=== PATIENT | male | born 1995 | race African-American/Black ===

== ENCOUNTER 2016-06-18 13:57 | Inpatient (IN) | payer MEDICAID, OTHER ==
[~2016-06-18] VITALS: Ht 177.8 cm; Wt 75.8 kg
[2016-06-18] VITALS (8 sets, daily range): BP systolic 112–144; BP diastolic 66–89; PULSE 60–85; RESP 16–18; TEMP 98.2–98.6; O2SAT 97–100
[2016-06-18] MEDS ORDERED: SODIUM CHLOR 0.9% 1000 ML INJ 1,000 ML IV SCH (14:21)
[2016-06-18] MEDS ORDERED: SODIUM CHLORIDE 0.9% FLUSH 10 ML FLUSH IVF PRN (14:30)
[2016-06-18] MEDS ORDERED: DIPHTH/TETANUS/ACEL PERTUSSIS (BOOSTER) 0.5 ML VIAL/PFS IM ONE (14:30)
[2016-06-18] MEDS ORDERED: ONDANSETRON HCL 4 MG/2 ML VIAL IVP ONE (14:30)
[2016-06-18 14:54] LABS: AUTOMATED NEUTROPHIL # 7.7 TH/MM3 (1.8-7.7); BASOPHIL % 0.4 % (0.0-2.0); EOSINOPHIL # 0.3 TH/MM3 (0-0.4); EOSINOPHIL % 2.8 % (0.0-4.0); HEMATOCRIT 45.4 % (39.0-51.0); HEMO FLAGS DIFF FINAL; LYMPHOCYTE # 2.4 TH/MM3 (1.0-4.8); MEAN CELL VOLUME 84.4 FL (80.0-100.0); MEAN CORPUSCULAR HEMOGLOBIN 28.3 PG (27.0-34.0); MEAN CORPUSCULAR HGB CONC 33.5 % (32.0-36.0); MONO % 5.2 % (0.0-8.0); NEUT % 69.6 % (16.0-70.0); PLATELET COUNT 197 TH/MM3 (150-450); RED BLOOD COUNT 5.38 MIL/MM3 (4.50-5.90); RED CELL DISTRIBUTION WIDTH 13.4 % (11.6-17.2)
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
[2016-06-18 15:11] LABS: APTT (PATIENT) 21.8 SEC (24.3-30.1); PROTHROMBIN TIME - PATIENT 10.9 SEC (9.8-11.6)
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
[2016-06-18 15:20] LABS: ANION GAP 5 MEQ/L (5-15); BICARBONATE 28.8 MEQ/L (21.0-32.0); BLOOD UREA NITROGEN 15 MG/DL (7-18); CHLORIDE 106 MEQ/L (98-107); GLOMERULAR FILTRATION RATE 81 ML/MIN (>89); SODIUM (NA) 140 MEQ/L (136-145)
[2016-06-18 15:21] LABS: POTASSIUM 4.2 MEQ/L (3.5-5.1)
[2016-06-18] MEDS ORDERED: IOHEXOL 350 MG/ML 10 ML VIAL (for RAD DIAG) IV ONE (15:42)
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
[2016-06-18] MEDS ORDERED: LIDOCAINE 2%/EPINEPHrine 1:100,000 30ML MDV INFIL ONE (16:00)
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
--- NOTE | 2016-06-18 16:24 | PD ---
Physical Exam Narrative I was asked by Dr. Singer to repair patient's laceration. Please see her documentation for full H&P Data Data Last Documented VS Vital Signs Date Time Temp Pulse Resp B/P Pulse Ox O2 Delivery O2 Flow Rate FiO2 06/18/16 14:24 16 100 Nasal Cannula 2 06/18/16 14:18 60 137/84 Orders Basic Metabolic Panel (Bmp) (06/18/16 14:21) Complete Blood Count With Diff (06/18/16 14:21) Prothrombin Time / Inr (Pt) (06/18/16 14:21) Act Partial Throm Time (Ptt) (06/18/16 14:21) Type And Screen (06/18/16 14:21) Alcohol (Ethanol) (06/18/16 14:21) Chest, Single Ap (06/18/16 14:21) Pelvis, Ap Only (Routine) (06/18/16 14:21) Ct Brain W/O Iv Contrast(Rout) (06/18/16 14:21) Ct Cerv Spine W/O Contrast (06/18/16 14:21) Ct Abd/Pel W Iv Contrast(Rout) (06/18/16 14:21) Iv Access Insert/Monitor (06/18/16 14:21) Ecg Monitoring (06/18/16 14:21) Oximetry (06/18/16 14:21) Ondansetron Inj (Zofran Inj) (06/18/16 14:30) Jrnl-Lid-Csyaja (Booster) Inj (Boostrix (06/18/16 14:30) Sodium Chlor 0.9% 1000 Ml Inj (Ns 1000 M (06/18/16 14:21) Sodium Chloride 0.9% Flush (Ns Flush) (06/18/16 14:30) Drug Screen, Random Urine (06/18/16 14:21) Forearm (2vws) (06/18/16 ) Iohexol 350 Inj (Omnipaque 350 Inj) (06/18/16 15:42) Consult Neurosurgery (06/18/16 ) Lidocai-Epi 2%-1:100,000 Inj (Xylocaine- (06/18/16 16:00) Labs Laboratory Tests Test 06/18/16 14:30 White Blood Count 11.0 TH/MM3 Red Blood Count 5.38 MIL/MM3 Hemoglobin 15.2 GM/DL Hematocrit 45.4 % Mean Corpuscular Volume 84.4 FL Mean Corpuscular Hemoglobin 28.3 PG Mean Corpuscular Hemoglobin 33.5 % Concent Red Cell Distribution Width 13.4 % Platelet Count 197 TH/MM3 Mean Platelet Volume 8.3 FL Neutrophils (%) (Auto) 69.6 % Lymphocytes (%) (Auto) 22.0 % Monocytes (%) (Auto) 5.2 % Eosinophils (%) (Auto) 2.8 % Basophils (%) (Auto) 0.4 % Neutrophils # (Auto) 7.7 TH/MM3 Lymphocytes # (Auto) 2.4 TH/MM3 Monocytes # (Auto) 0.6 TH/MM3 Eosinophils # (Auto) 0.3 TH/MM3 Basophils # (Auto) 0.0 TH/MM3 CBC Comment DIFF FINAL Differential Comment Prothrombin Time 10.9 SEC Prothromb Time International 1.0 RATIO Ratio Activated Partial 21.8 SEC Thromboplast Time Sodium Level 140 MEQ/L Potassium Level 4.2 MEQ/L Chloride Level 106 MEQ/L Carbon Dioxide Level 28.8 MEQ/L Anion Gap 5 MEQ/L Blood Urea Nitrogen 15 MG/DL Creatinine 1.36 MG/DL Estimat Glomerular Filtration 81 ML/MIN Rate Random Glucose 142 MG/DL Calcium Level 8.7 MG/DL Ethyl Alcohol Level LESS THAN 3 MG/DL Blood Type B POSITIVE Antibody Screen NEGATIVE Blood Bank Comment [facility] Supervised Visit with KELLEY: No Procedures Procedure Narrative LACERATION REPAIR LOCATION: Left forehead LENGTH: Approximately 1.5 cm NUMBER OF STITCHES/TAMMIE: Steri-Strip and Dermabond REPAIR: Verbal consent was obtained. The area of the laceration was cleaned and prepped. The wound was copiously irrigated and explored without evidence of foreign body, bony involvement, ligament injury, tendon injury, or neurovascular injury. The wound was closed using Steri-Strip and Dermabond. This was a single layer repair. The patient was advised to keep the affected area as clean and dry as possible using soap and water. There were no complications. Patient tolerated the procedure well. Scripts No Active Prescriptions or Reported Meds Natalio Martinez Jun 18, 2016 16:24
[2016-06-18] MEDS ORDERED: MISCELLANEOUS NURSING INFORMATION XX SCH (17:45)
[2016-06-18] MEDS ORDERED: ONDANSETRON HCL 4 MG/2 ML VIAL IV PRN (17:45)
[2016-06-18] MEDS ORDERED: CHLORHEXIDINE GLUCONATE 2 % 1 PACK (2 CLOTHS) TOP PRN (17:45)
[2016-06-18] MEDS ORDERED: SODIUM CHLORIDE 0.9% FLUSH 10 ML FLUSH IV FLUSH PRN (17:45)
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
[2016-06-18] MEDS: SODIUM CHLOR 0.9% 1000 ML INJ 1,000 ML IV SCH (19:34)
[2016-06-18] MEDS: SODIUM CHLORIDE 0.9% FLUSH 10 ML FLUSH IV FLUSH SCH (21:00)
[2016-06-19] VITALS (15 sets, daily range): BP systolic 116–131; BP diastolic 59–72; PULSE 63–88; RESP 13–20; TEMP 97.1–99.5; O2SAT 100
[2016-06-19] MEDS: SODIUM CHLOR 0.9% 1000 ML INJ 1,000 ML IV SCH ×2 (03:55→13:32)
[2016-06-19] MEDS ORDERED: CHLORHEXIDINE GLUCONATE 2 % 1 PACK (2 CLOTHS) TOP SCH (04:00)
[2016-06-19 05:53] LABS: BASOPHIL % 0.3 % (0.0-2.0); EOSINOPHIL % 0.1 % (0.0-4.0); HEMATOCRIT 45.1 % (39.0-51.0); HEMO FLAGS DIFF FINAL; LYMPH % 11.9 % (9.0-44.0); LYMPHOCYTE # 1.6 TH/MM3 (1.0-4.8); MEAN CORPUSCULAR HEMOGLOBIN 28.8 PG (27.0-34.0); MEAN CORPUSCULAR HGB CONC 33.5 % (32.0-36.0); MONO % 7.1 % (0.0-8.0); NEUT % 80.6 % (16.0-70.0); PLATELET COUNT 191 TH/MM3 (150-450); RED BLOOD COUNT 5.24 MIL/MM3 (4.50-5.90); RED CELL DISTRIBUTION WIDTH 13.7 % (11.6-17.2); WHITE BLOOD COUNT 13.7 TH/MM3 (4.0-11.0)
[2016-06-19 06:33] LABS: POTASSIUM 4.4 MEQ/L (3.5-5.1)
[2016-06-19] MEDS: SODIUM CHLORIDE 0.9% FLUSH 10 ML FLUSH IV FLUSH SCH (07:34)
[2016-06-19] MEDS ORDERED: LACTULOSE SYRUP 20 GM/30 ML CUP PO SCH (09:00)
[2016-06-19] MEDS ORDERED: DOCUSATE SODIUM 100 MG CAP PO SCH (09:00)
[2016-06-19 09:30] LABS: AMPHETAMINE, URINE NEG (NEG); BARBITURATES, URINE NEG (NEG); COCAINE, URINE NEG (NEG)
[2016-06-19] MEDS ORDERED: ACET1CAP18 PO (10:01)
--- NOTE | 2016-06-19 11:12 | RADRPT ---
EXAM DATE/TIME: 06/19/2016 10:57 [place] COMPARISON: CT BRAIN W/O CONTRAST, June 18, 2016, 15:32. INDICATIONS : Evaluate hemorrhage. RADIATION DOSE: 49.82 CTDIvol (mGy) MEDICAL HISTORY : None SURGICAL HISTORY : None. ENCOUNTER: Initial ACUITY: 1 day PAIN SCALE: 5/10 LOCATION: cranial TECHNIQUE: Multiple contiguous axial images were obtained of the head. Using automated exposure control and adj ustment of the mA and/or kV according to patient size, radiation dose was kept as low as reasonably a chievable to obtain optimal diagnostic quality images. FINDINGS: The approximate 4-5 mm intraparenchymal contusion of the left frontal lobe has not changed and t he other tiny area adjacent to it is no longer visualized. The rest of the examination has not signif icantly changed. CONCLUSION: One of the tiny intraparenchymal hemorrhages in the left frontal lobe is no longer visualized and the other one has not changed. Joycelyn Alonso MD on June 19, 2016 at 11:08 Board Certified Radiologist. This report was verified electronically.
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
[2016-06-19] MEDS ORDERED: MAGNESIUM HYDROXIDE SUSP 30 ML CUP PO SCH (21:00)
== END 2016-06-19 17:42 | disposition home or self-care (01) | DRG 84 ==
LOC: NEPC 13:57 → NEDA 17:13 → N03B 20:35
PROVIDERS: ADMIT Surgery Trauma Surgery; ATTEND Surgery Trauma Surgery
PROC: 0HQ0XZZ Repair Scalp Skin, External Approach (ICD-10-PCS; principal; 2016-06-18)
DX: S06.359A Traumatic hemorrhage of left cerebrum with loss of consciousness of unspecified duration, initial encounter (principal); S01.01XA Laceration without foreign body of scalp, initial encounter; R40.2410 Glasgow coma scale score 13-15, unspecified time; V29.40XA Motorcycle driver injured in collision with unspecified motor vehicles in traffic accident, initial encounter; Y93.89 Activity, other specified; Y92.410 Unspecified street and highway as the place of occurrence of the external cause
CPT/HCPCS: 12011; 70450; 71010; 72125; 72170; 73090; 74177; 80048; 80307; 85025; 85610; 85730; 86850; 86900; 86901; 87641; 90471; 90715; 96361; 96374; J2405; J3010; J7030; Q9967